=== PATIENT | female | born 2000 | race Caucasian/White ===

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

== ENCOUNTER → 2020-03-29 | Outpatient (CLI) | payer BC, OTHER ==
[2020-03-29 13:58] LABS: BASO % 0.7 % (0.0-1.0); EOS # 0.1 10^3/uL (0.0-0.5); EOS % 1.2 % (0.0-3.0); HEMATOCRIT 40.4 % (36.0-47.0); LYMPH # 1.5 10^3/uL (1.5-5.0); MEAN CORPUSCULAR HEMOGLOBIN 28.4 pg (27.0-33.0); MEAN CORPUSCULAR HGB CONC 32.2 g/dl (32.0-36.5); MEAN CORPUSCULAR VOLUME 88.2 fl (80.0-96.0); MONO # 0.4 10^3/uL (0.0-0.8); MONO % 6.9 % (2.0-8.0); NEUTROPHILS # 3.8 10^3/uL (1.5-8.5); PLATELET COUNT, AUTOMATED 396 10^3/uL (150-450); RED BLOOD COUNT 4.58 10^6/uL (4.00-5.40); WHITE BLOOD COUNT 5.8 10^3/uL (4.0-10.0)
[2020-03-29 14:41] LABS: THYROID STIMULATING HORMONE 6.99 uIU/ML (0.463-3.98); THYROXINE (T4) 15.4 UG/DL (6.0-11.6); TOTAL T3 134.1 NG/DL (86.0-192.0)
== END ==
LOC: M PLALAB 10:38
PROVIDERS: ATTEND Pediatrics Pediatric Endocrinology
DX: E03.9 Hypothyroidism, unspecified (principal)

== ENCOUNTER → 2020-07-11 | Outpatient (CLI) | payer OTHER ==
[2020-07-11 14:06] LABS: FREE T4 1.09 NG/DL (0.78-1.33); THYROID STIMULATING HORMONE 0.183 uIU/ML (0.463-3.98)
== END ==
LOC: M PLALAB 09:28
PROVIDERS: ATTEND Pediatrics Pediatric Endocrinology
DX: E03.8 Other specified hypothyroidism (principal); E06.3 Autoimmune thyroiditis

== ENCOUNTER → 2020-07-17 | Outpatient (REF) | payer OTHER | LOC: M SFHCWAGY 12:55 | PROVIDERS: ATTEND Nurse Practitioner Women's Health | DX: Z11.3 Encounter for screening for infections with a predominantly sexual mode of transmission (principal) ==

== ENCOUNTER → 2020-09-25 | Outpatient (CLI) | payer OTHER ==
[2020-09-25 15:14] LABS: FREE T3 2.5 PG/ML (2.9-4.5); FREE T4 1.04 NG/DL (0.78-1.33); THYROID STIMULATING HORMONE 4.48 uIU/ML (0.463-3.98)
== END ==
LOC: M PLALAB 10:14
PROVIDERS: ATTEND Pediatrics Pediatric Endocrinology
DX: E03.8 Other specified hypothyroidism (principal)

== ENCOUNTER → 2023-01-30 | Outpatient (REF) | payer OTHER ==
[~2023-01-30] MED LIST changes: +METH18TA7 PO; -METH18TA8 PO
== END ==
LOC: M LAB REF 18:07
PROVIDERS: ATTEND Physician Assistant Medical
DX: J02.9 Acute pharyngitis, unspecified (principal)

== ENCOUNTER → 2023-07-08 | Outpatient (REF) | payer OTHER | LOC: M SFHCWAGY 15:20 | PROVIDERS: ATTEND Nurse Practitioner Family | DX: Z12.4 Encounter for screening for malignant neoplasm of cervix (principal); R87.615 Unsatisfactory cytologic smear of cervix; R87.618 Other abnormal cytological findings on specimens from cervix uteri ==

== ENCOUNTER → 2024-09-29 | Outpatient (CLI) | payer OTHER ==
[2024-09-29 17:13] LABS: BASO # 0.0 10^3/uL (0.0-0.2); BASO % 0.6 % (0.0-1.0); EOS # 0.2 10^3/uL (0.0-0.5); EOS % 2.9 % (0.0-3.0); LYMPH # 1.5 10^3/uL (1.5-5.0); LYMPH % 29.6 % (24.0-44.0); MONO # 0.5 10^3/uL (0.0-0.8); MONO % 9.9 % (2.0-8.0); NEUTROPHILS # 2.9 10^3/uL (1.5-8.5); NEUTROPHILS % 57.0 % (36.0-66.0); PLATELET COUNT, AUTOMATED 301 10^3/uL (150-450)
[2024-09-29 17:36] LABS: ALT/SGPT 18 U/L (7.0-40); AST/SGOT 20 U/L (<34); CALCIUM LEVEL 9.2 MG/DL (8.5-10.1); CARBON DIOXIDE LEVEL 28 MMOL/L (20-31); CHLORIDE LEVEL 104 MMOL/L (98-107); CREATININE FOR GFR 0.77 MG/DL (0.55-1.30); GLOMERULAR FILTRATION RATE > 90.0 (>60); POTASSIUM SERUM 4.1 MMOL/L (3.5-5.1); SODIUM LEVEL 142 MMOL/L (136-145)
[2024-09-29 17:37] LABS: FREE T4 1.17 NG/DL (0.89-1.76); TOTAL 25(OH) VITAMIN D 26.8 NG/ML (20.0-100.0)
[2024-09-29 17:38] LABS: VITAMIN B12 LEVEL 328 PG/ML (211-911)
== END ==
LOC: M PLALAB 15:18
PROVIDERS: ATTEND Internal Medicine
DX: Z00.00 Encounter for general adult medical examination without abnormal findings (principal)